=== PATIENT | female | born 1990 | race Caucasian/White ===

== ENCOUNTER 2019-07-30 15:17 | Emergency (ER) | payer MEDICAID, OTHER ==
[~2019-07-30] VITALS: Ht 175.3 cm; Wt 72.0 kg
[~2019-07-30 15:17] MED LIST: ALBU2.5V13; CALC-17; FIORICET; OMEP20CA4 PO; TOPUD PO; TRAM50TA PO
[2019-07-30 15:40] VITALS: BP 135/81
[2019-07-30] MEDS ORDERED: IPRATROPIUM BROMIDE (0.02%) 0.5MG/2.5ML NEB HHN STA (17:36)
[2019-07-30] MEDS ORDERED: PREDNISONE 20MG TABLET PO STA (17:36)
[2019-07-30] MEDS ORDERED: ALBUTEROL (0.083%) 2.5MG/3ML NEB HHN STA (17:36)
[2019-07-30] MEDS ORDERED: ACETAMINOPHEN 325MG TABLET PO ONE (17:45)
[2019-07-30] MEDS ORDERED: AZITHROMYCIN 500 MG TABLET PO ONE (18:15)
== END 2019-07-30 19:10 | disposition home or self-care (01) ==
LOC: ER 15:17
DX: J45.901 Unspecified asthma with (acute) exacerbation (principal); R09.89 Other specified symptoms and signs involving the circulatory and respiratory systems
CPT/HCPCS: 71045; 94640; 99284; J7512; J7611; Z7610

== ENCOUNTER 2019-11-14 20:33 | Emergency (ER) | payer MEDICAID ==
[~2019-11-14] VITALS: Ht 175.3 cm; Wt 73.0 kg
[2019-11-14 23:02] VITALS: BP 122/75
== END 2019-11-15 01:53 | disposition left against medical advice (07) ==
LOC: ER 20:33
DX: Z53.21 Procedure and treatment not carried out due to patient leaving prior to being seen by health care provider (principal)